=== PATIENT | male | born 1960 | race Caucasian/White ===

== ENCOUNTER 2018-07-15 11:49 | Emergency (ER) | payer SELFPAY ==
[~2018-07-15] VITALS: Ht 180.3 cm; Wt 120.5 kg
[~2018-07-15 11:49] MED LIST: BACTRIM DS1 TAB PO; CEPHALEXIN500 MG PO; FLEXERIL PO; LORTAB 1010 MG PO; MUPIROCIN2 % EX; SULFACET SOD10 % OS; ULTRAM50 M1 PO
[2018-07-15] MEDS ORDERED: MEDDOSEPAK PO (13:52)
[2018-07-15] MEDS ORDERED: FLEXERIL PO (13:52)
[2018-07-15] MEDS ORDERED: TORADOL PO (13:52)
[2018-07-15 14:00] VITALS: BP 131/82
== END 2018-07-15 14:00 | disposition home or self-care (01) | DRG 538 ==
LOC: ED 11:49
DX: S76.012A Strain of muscle, fascia and tendon of left hip, initial encounter (principal); X58.XXXA Exposure to other specified factors, initial encounter; F17.210 Nicotine dependence, cigarettes, uncomplicated

== ENCOUNTER 2021-12-07 11:39 | Observation (INO) | payer SELFPAY ==
[~2021-12-07] VITALS: Ht 180.3 cm; Wt 122.0 kg
[~2021-12-07 11:39] MED LIST changes: +MEDDOSEPAK PO; +TORADOL PO
--- NOTE | 2021-12-07 11:40 | NUR ---
TO ROOM VIA WHEELCHAIR
[2021-12-07] MEDS ORDERED: TYLENOL PM PO (12:08)
[2021-12-07 12:26] LABS: HEMOGLOBIN 18.1 g/dl (14.0-18.0); IMMATURE GRANULOCYTES 0.3 % (0.0-5.0); MEAN CORPUSCULAR HGB 33.5 pG CALC (26.0-32.0); MEAN CORPUSCULAR HGB CONC 32.8 g/dL CAL (32.0-36.0); NEUT# 4.84 thou/uL (1.82-7.42); RED BLOOD COUNT 5.41 mill/uL (4.70-6.10); RED CELL DISTRI WIDTH 12.2 % (11.5-15.5)
[2021-12-07 12:30] LABS: HEMATOCRIT 55.1 % (39.0-50.0); MEAN CELL VOLUME 101.8 fL CALC (80.0-100.0)
[2021-12-07 12:44] LABS: ALBUMIN 4.4 g/dL (3.2-5.0); ALKALINE PHOSPHATASE 56 u/l (38-126); BUN 17 mg/dL (8-23); BUN/CREATININE RATIO 16 (12-20 (CALC)); CHLORIDE 104 mmol/l (95-108); GFR > 60 ML/MIN (>=60 (CALC)); GFR FOR AFR.AMER. > 60 ML/MIN (>=60 (CALC)); SGOT/AST 22 u/l (19-48); SODIUM 137 mmol/l (137-146); TOTAL PROTEIN 7.4 g/dL (6.3-8.2)
[2021-12-07 12:48] LABS: ANION GAP 17 (6-22 (CALC)); BILIRUBIN, TOTAL 0.6 mg/dL (0.0-1.4); CARBON DIOXIDE 21 mmol/l (22-30); POTASSIUM 5.3 mmol/l (3.5-5.1)
--- NOTE | 2021-12-07 14:48 | NUR ---
MD AT BEDSIDE TO DISCUSS RESULTS AND POC
--- NOTE | 2021-12-07 15:30 | NUR ---
Elvira BARAHONA APRN AT BEDSIDE TO DISCUSS RESULTS AND POC
--- NOTE | 2021-12-07 16:17 | NUR ---
REPORT GIVEN TO VALERIY NEVILLE
--- NOTE | 2021-12-07 16:20 | NUR ---
TO MED SURG VIA WHEELCHAIR, TELE MONITOR IN PLACE
--- NOTE | 2021-12-07 16:20 | NUR ---
PATIENT RECEIVED FROM ED AT THIS TIME. PATIENT ALERT AND ORIENTED X 3 PATIENT STATES HAS SHOULDER PAIN AND IS A 3 ON THE PAIN SCALE AND 5MG OF FLEXIRIL PO GIVEN AT THIS TIME AND NICOTINE PATCH PLACED ON LEFT UPPER ARM. PATIENT PRESENTS WITH CLEAR LUNG PORTER AT THIS TIME. BOWEL SOUNDS PRESENT IN ALL FOUR QUADS AND PATIENT STATES THAT HIS LAST BM WAS THIS AM. NO EDEMA NOTED AND OR OPEN WOUNDS. ROOM ORIENTATION GONE OVER WITH PATIENT AT THIS TIME. PATIENT VERBALIZES UNDERSTANDING OF SIDERAIL POLICY AND ROOM ORIENTATION. TELE MONITOR ON PATIENT AT THIS TIME AND IS BEING MONITORED BY ED. IV #20 IN RAC AND IS SALINE LOCKED AND PATENT. SIDERAILS ARE UP CALL LIGHT IS WIHTIN REACH.
[2021-12-07 16:49] VITALS: BP 155/88
--- NOTE | 2021-12-07 20:00 | NUR ---
PATIENT RESTING IN BED WITH HOB ELEVATED. AWAKE ALERT AND ORIENTEDX3. 1800 TROP WAS NEG. TELE MONITOR IN PLACE WITH LAST READING SR-85 1ST DEGREE AVB. SALINE LOCK TO RAC INTACT AND HEALTHY WITH GOOD BLOOD RETURN. LUNGS ARE CLEAR. ABD IS SOFT WITH ACTIVE BS. LAST BM WAS YESTERDAY. DENIES ANY DIFFICULTY WITH URINATION. NO PERIPHERAL EDEMA NOTED WITH PALPABLE PULSES. SAFETY PRECAUTIONS REINFORCED. CALL LIGHT IN REACH. WILL CONT TO MONITOR.
[2021-12-07 20:30] VITALS: BP 142/83
--- NOTE | 2021-12-07 22:20 | NUR ---
PATIENT RESTING IN BED AT THIS TIME WATCHING TV. VOIDED 200CC OF CLEAR YELLOW URINE IN URINAL. TELE MONITOR IN PLACE. IV SITE TO RAC INTACT. MEDICATED FOR SLEEP WITH MELATONIN 3MG PO. CALL LIGHT IN REACH. WILL CONT TO MONITOR,
--- NOTE | 2021-12-07 23:54 | NUR ---
PATIENT RESTING IN BED. MN TROP HAS BEEN DRAWN. NO COMPLAINTS. CALL LIGHT IN REACH. WILL CONT TO MONITOR.
[2021-12-08] VITALS: BP 131/64
[2021-12-08 04:00] VITALS: BP 130/59
--- NOTE | 2021-12-08 04:00 | NUR ---
PATIENT RESTING IN BED-RESTLESS AT TIMES AND TELE OFF-REAPPLIED NEED. SALINE LOCK REMAINS IN PLACE. NO COMPLAINTS OF CHEST PAIN, PALPATATIONS OR SOB. CALL LIGHT IN REACH. WILL CONT TO MOITOR.
[2021-12-08 06:13] LABS: HEMATOCRIT 51.8 % (39.0-50.0); HEMOGLOBIN 16.8 g/dl (14.0-18.0); MEAN CELL VOLUME 101.8 fL CALC (80.0-100.0); MEAN CORPUSCULAR HGB CONC 32.4 g/dL CAL (32.0-36.0); RED BLOOD COUNT 5.09 mill/uL (4.70-6.10); RED CELL DISTRI WIDTH 12.2 % (11.5-15.5)
[2021-12-08 06:28] LABS: ANION GAP 12 (6-22 (CALC)); BUN 17 mg/dL (8-23); BUN/CREATININE RATIO 17 (12-20 (CALC)); CALCULATED LDLCHOLESTEROL 121 mg/dL (62-129 (CALC)); CHLORIDE 102 mmol/l (95-108); CHOLESTEROL HDL RATIO 8.2 (<4.4 (CALC)); GFR > 60 ML/MIN (>=60 (CALC)); GFR FOR AFR.AMER. > 60 ML/MIN (>=60 (CALC)); HDL CHOLESTEROL 26 mg/dL (>=40); MAGNESIUM 2.1 mg/dL (1.6-2.3); SODIUM 135 mmol/l (137-146); TOTAL CHOLESTEROL 217 mg/dl (0-199); TOTAL TRIGLYCERIDES 352 mg/dl (30-149); VLDL CHOLESTROL 70 mg/dl (4-45 (CALC))
[2021-12-08 06:34] LABS: CARBON DIOXIDE 26 mmol/l (22-30)
--- NOTE | 2021-12-08 08:00 | NUR ---
alert and orientedx3. respirations even and unlabored. bs active, no ble edemA NOTED, NO DIFFICULTY VOIDING. PIV WDL. PT DOES C/O FLANK PAIN THIS AM, NO CHEST PAIN. MEDICTAED PER DEC.
[2021-12-08] MEDS ORDERED: ASPIRIN 81 LOW81 MG PO (09:38)
[2021-12-08] MEDS ORDERED: FLEXERIL5 M1 PO (09:38)
[2021-12-08] MEDS ORDERED: MELATONIN3 M1 PO (10:39)
[2021-12-08 10:56] VITALS: BP 152/85
--- NOTE | 2021-12-08 13:11 | NUR ---
Discharge instructions given. Patient verbalizes understanding of same. Discharged in stable condition via AMBULATORY to Home with staff. All belongings sent with pt. IV 20 RAC SL REMOVED CATHETER FULLY INTACT. TELE MONITOR REMOVED. PT LEFT AMBUOLATORY PER REQUEST, ACCOMPANIED BY JAMIN GA
== END 2021-12-08 13:12 | disposition home or self-care (01) | DRG 313 ==
LOC: ED 11:39 → ED-I 14:22 → ED 15:01 → MS2 15:02
PROVIDERS: Family Medicine; Nurse Practitioner; ADMIT Hospitalist; ATTEND Hospitalist
DX: R07.9 Chest pain, unspecified (principal); E87.5 Hyperkalemia; E66.9 Obesity, unspecified; F17.210 Nicotine dependence, cigarettes, uncomplicated; Z68.37 Body mass index [BMI] 37.0-37.9, adult; Z82.49 Family history of ischemic heart disease and other diseases of the circulatory system; Z83.6 Family history of other diseases of the respiratory system; Z20.822 Contact with and (suspected) exposure to COVID-19
CPT/HCPCS: G0378; J1650; Q9967

== ENCOUNTER 2023-05-02 10:07 | Observation (INO) | payer SELFPAY ==
[2023-05-02] VITALS (16 sets, daily range): BP systolic 148–176; BP diastolic 78–140
[~2023-05-02] VITALS: Ht 180.3 cm; Wt 136.4 kg
[~2023-05-02 10:07] MED LIST changes: +ASPIRIN 81 LOW81 MG PO; +FLEXERIL5 M1 PO; +MELATONIN3 M1 PO; +TYLENOL PM PO
--- NOTE | 2023-05-02 10:12 | NUR ---
PATIENT TO ROOM 14 VIA WHEELCHAIR
[2023-05-02 11:03] LABS: BASO% 0.3 % (0-3); HEMATOCRIT 49.3 % (39.0-50.0); IMMATURE GRANULOCYTES 0.4 % (0.0-5.0); LYMPH% 24.5 % (15-41); MEAN CORPUSCULAR HGB 31.8 pG CALC (26.0-32.0); MEAN CORPUSCULAR HGB CONC 32.5 g/dL CAL (32.0-36.0); MONO% 7.1 % (2-13); NEUT# 4.75 thou/uL (1.82-7.42); NEUT% 67.7 % (42-76); RED BLOOD COUNT 5.03 mill/uL (4.70-6.10); RED CELL DISTRI WIDTH 12.5 % (11.5-15.5)
--- NOTE | 2023-05-02 11:16 | NUR ---
PT IS SITTING UP IN BED, NAD.
[2023-05-02 11:23] LABS: ALBUMIN 3.7 g/dL (3.2-5.0); ALKALINE PHOSPHATASE 49 u/l (38-126); ANION GAP 9 (6-22 (CALC)); BILIRUBIN, TOTAL 0.4 mg/dL (0.2-1.3); BUN 15 mg/dL (8-23); BUN/CREATININE RATIO 17 (12-20 (CALC)); CARBON DIOXIDE 25 mmol/l (22-30); CHLORIDE 108 mmol/l (95-108); CREATININE 0.9 mg/dL (0.7-1.3); GFR FOR AFR.AMER. > 60 ML/MIN (>=60 (CALC)); GFR OTHER RACES > 60 ML/MIN (>=60 (CALC)); POTASSIUM 4.6 mmol/l (3.5-5.1); SGOT/AST 22 u/l (19-48); SODIUM 137 mmol/l (137-146); TOTAL PROTEIN 6.5 g/dL (6.3-8.2)
--- NOTE | 2023-05-02 12:09 | NUR ---
PT HAS AMBULATED BACK TO BED, PT HAS C/O PAIN TO LEGS.
--- NOTE | 2023-05-02 13:00 | NUR ---
PT STATES PAIN IS DOWN TO 4.
--- NOTE | 2023-05-02 14:13 | NUR ---
pt has been provided lunch
--- NOTE | 2023-05-02 15:36 | NUR ---
REPORT RECIVED FROM HEATING MECHANIC
--- NOTE | 2023-05-02 15:43 | NUR ---
PT ARRIVED VIA WC WITH OCCUPATIONAL SAFETY AND HEALTH MANAGER. ORIENATED PT TO ROOM AND CALL [facility]. ADMISSION ASESSMENT ALLOWED. TELE MONITOR IN PLACE, CONTINOUS MONITORING PER ED. TELE #15. DISCUSSED CURRENT PLAN OF CARE. FALL/SAFTEY PRECAUITON IN PLACE. CALL LIGHT WITHIN REACH.
--- NOTE | 2023-05-02 18:56 | NUR ---
REPORT RECEIVED FROM Jennifer GA RN
--- NOTE | 2023-05-02 18:58 | NUR ---
REPORT RECEIVED FROM Jennifer ENG RN
[2023-05-03] VITALS (8 sets, daily range): BP systolic 119–168; BP diastolic 69–92
--- NOTE | 2023-05-03 | NUR ---
PATIENT RESTING, NO APPARENT DISTRESS NOTED. RESPIRATIONS EVEN AND UNLABORED, RISE AND FALL OF CHEST NOTED. CALL LIGHT AND BEDSIDE TABLE WITHIN REACH.
--- NOTE | 2023-05-03 04:00 | NUR ---
PATIENT RESTING, NO APPARENT DISTRESS NOTED. RESPIRATIONS EVEN AND UNLABORED, RISE AND FALL OF CHEST NOTED. CALL LIGHT AND BEDSIDE TABLE WITHIN REACH.
[2023-05-03 05:16] LABS: ALBUMIN 3.6 g/dL (3.2-5.0); ALKALINE PHOSPHATASE 61 u/l (38-126); ANION GAP 10 (6-22 (CALC)); BILIRUBIN, TOTAL 0.3 mg/dL (0.2-1.3); BUN 16 mg/dL (8-23); BUN/CREATININE RATIO 15 (12-20 (CALC)); CARBON DIOXIDE 25 mmol/l (22-30); CHLORIDE 104 mmol/l (95-108); GFR FOR AFR.AMER. > 60 ML/MIN (>=60 (CALC)); GFR OTHER RACES > 60 ML/MIN (>=60 (CALC)); POTASSIUM 3.9 mmol/l (3.5-5.1); SGOT/AST 23 u/l (19-48); SODIUM 135 mmol/l (137-146); TOTAL PROTEIN 6.3 g/dL (6.3-8.2)
[2023-05-03 05:20] LABS: HEMATOCRIT 50.4 % (39.0-50.0); HEMOGLOBIN 16.5 g/dl (14.0-18.0); MEAN CELL VOLUME 97.5 fL CALC (80.0-100.0); MEAN CORPUSCULAR HGB 31.9 pG CALC (26.0-32.0); MEAN CORPUSCULAR HGB CONC 32.7 g/dL CAL (32.0-36.0); RED BLOOD COUNT 5.17 mill/uL (4.70-6.10); RED CELL DISTRI WIDTH 12.6 % (11.5-15.5)
[2023-05-03 05:36] LABS: CHOLESTEROL HDL RATIO 7.1 (<4.4 (CALC)); MAGNESIUM 1.9 mg/dL (1.6-2.3)
--- NOTE | 2023-05-03 07:00 | NUR ---
RECEIVE REPORT FROM LAURA NEVILLE.
--- NOTE | 2023-05-03 08:00 | NUR ---
Alert and oriented patient x3. He does not report pain or discomfort at the time of this note. TV monitor on. patient is educated and oriented about medications and nursing plan for all. pt refer understand. safety and fall precautions in place. call light within reach.
--- NOTE | 2023-05-03 12:28 | NUR ---
PATIENT RESTING IN BED, NO APPARENT DISTRESS NOTED. RESPIRATIONS EVEN AND UNLABORED, RISE AND FALL OF CHEST NOTED. CALL LIGHT AND BEDSIDE TABLE WITHIN REACH.
--- NOTE | 2023-05-03 16:00 | NUR ---
PT RESTING DENIES ADDITIONAL NEEDS AT THE TIME VERIFIED TO CHANGE NICOTINE PATCH SCHEDULED PT AGREED.
--- NOTE | 2023-05-03 18:47 | NUR ---
REPORT RECEIVED FROM Jeninfer JOYA LPN.
[2023-05-04] VITALS (9 sets, daily range): BP systolic 133–147; BP diastolic 72–83
--- NOTE | 2023-05-04 | NUR ---
PATIENT RESTING IN BED, NO APPARENT DISTRESS NOTED. RESPIRATIONS EVEN AND UNLABORED. RISE AND FALL OF CHEST NOTED. CALL LIGHT AND BEDSIDE TABLE WITHIN REACH.
--- NOTE | 2023-05-04 03:58 | NUR ---
PATIENT WAS WEIGHED ON STANDING SCALE AT THIS TIME.
[2023-05-04 05:55] LABS: HEMATOCRIT 49.6 % (39.0-50.0); HEMOGLOBIN 16.3 g/dl (14.0-18.0); MEAN CELL VOLUME 97.6 fL CALC (80.0-100.0); MEAN CORPUSCULAR HGB 32.1 pG CALC (26.0-32.0); MEAN CORPUSCULAR HGB CONC 32.9 g/dL CAL (32.0-36.0); RED BLOOD COUNT 5.08 mill/uL (4.70-6.10); RED CELL DISTRI WIDTH 12.3 % (11.5-15.5)
[2023-05-04 06:21] LABS: ALBUMIN 3.8 g/dL (3.2-5.0); ALKALINE PHOSPHATASE 52 u/l (38-126); ANION GAP 9 (6-22 (CALC)); BUN 17 mg/dL (8-23); BUN/CREATININE RATIO 17 (12-20 (CALC)); CARBON DIOXIDE 28 mmol/l (22-30); CHLORIDE 102 mmol/l (95-108); GFR FOR AFR.AMER. > 60 ML/MIN (>=60 (CALC)); GFR OTHER RACES > 60 ML/MIN (>=60 (CALC)); MAGNESIUM 2.1 mg/dL (1.6-2.3); POTASSIUM 4.1 mmol/l (3.5-5.1); SGOT/AST 24 u/l (19-48); SODIUM 135 mmol/l (137-146); TOTAL PROTEIN 6.6 g/dL (6.3-8.2)
[2023-05-04 06:34] LABS: BILIRUBIN, TOTAL 0.7 mg/dL (0.2-1.3)
--- NOTE | 2023-05-04 07:45 | NUR ---
PERFROMED BEDSIDE REPORT WITH NIGHTSHIFT NURSE. PT NOTED SITTING UP IN CHAIR, RM AIR, A/OX3, EATING BREAKFAST AT THIS TIME. PT DENIES ANY PAIN. DOES COMPLAIN OF FEELING A SPLINTER IN LEFT FOOT. DID INSPECT AREA AND NOTED SMALL DARK SPOT. NO SPLINTER NOTED. EDUCATED PT ON PLAN OF CARE AND MED SCHEDULE. CALL LIGHT WITHIN REACH AND SAFETY PRECAUTIONS IN PLACE.
--- NOTE | 2023-05-04 11:30 | NUR ---
PT IS SITTING UP ON SIDE OF BED EATING LUNCH AT THIS TIME. PT DID COMPLAIN OF PAIN, FOLLOWED UP WITH PAIN MEDICATION PER EMAR. NO S/S OF DISTRESS. CALL LIGHT WITHIN REACH AND SAFETY PRECAUTIONS IN PLACE.
--- NOTE | 2023-05-04 17:31 | NUR ---
APPLIED NEW NICOTINE PATCH AND APPLIED NEW ONE. PT IS CURRENTLY LAYING SEMI FOWELRS IN BED. NO S/S OF DISTRESS. DENIES ANY PAIN AT THIS TIME. CALL LIGHT WITHIN REACH AND SAFETY PRECAUTIONS IN PLACE.
--- NOTE | 2023-05-04 20:00 | NUR ---
RECEIVED REPORT FROM NURSE ERICH WEISS ALERT ORINETED, AMBULATORY, PATIENT IV G 20 ON LAC PATENT AND FLUSHES WELL, HOOKED ON TELEMTRY, LUNG SOUNDS DIMINISHED, ACTIVE BOWLE SOUNDS LBM 05/04, NOT IN DISTRESS, CALL LIGHT IN REACH.
--- NOTE | 2023-05-04 22:30 | NUR ---
[facility] ID SWAB RESULT NEGATIVE PATYIENT ON STANDARD PRECAUTION.
--- NOTE | 2023-05-04 23:48 | NUR ---
PATIENT ONGOINF V VIBRAMYCIN, PATIENT NOT IN DISTRESS, BREATHING EVEN UNLABORED CALL LIGHT IN REACH.
--- NOTE | 2023-05-05 03:40 | NUR ---
PATIENT RESTING IN BED NOT IN DISTRESS, BREATHING UNLABORED, CALL LIGHT IN REACH.
[2023-05-05 04:21] VITALS: BP 129/81
--- NOTE | 2023-05-05 05:05 | NUR ---
PATIENT C/O INDIGESTION AND GERD, V/S OBTAINED AND TROPONIN X 1 ORDERED.
[2023-05-05 06:10] LABS: ANION GAP 15 (6-22 (CALC)); BUN 22 mg/dL (8-23); BUN/CREATININE RATIO 24 (12-20 (CALC)); CARBON DIOXIDE 23 mmol/l (22-30); CHLORIDE 102 mmol/l (95-108); CREATININE 0.9 mg/dL (0.7-1.3); GFR FOR AFR.AMER. > 60 ML/MIN (>=60 (CALC)); GFR OTHER RACES > 60 ML/MIN (>=60 (CALC)); MAGNESIUM 2.2 mg/dL (1.6-2.3); POTASSIUM 4.7 mmol/l (3.5-5.1); SODIUM 135 mmol/l (137-146)
[2023-05-05 06:40] VITALS: BP 144/60
--- NOTE | 2023-05-05 07:00 | NUR ---
RECEIVED BEDSIDE REPORT FROM JAMIN SERVIN. PT RESTING IN BED WITH EYES CLOSED. ALL SAFETY MEASURES IN PLACE. VSS. NO NEEDS AT THIS TIME.
[2023-05-05] MEDS ORDERED: ADLT ASA LOW81 MG PO (10:29)
[2023-05-05] MEDS ORDERED: LOPRESSOR25 MG PO (10:29)
[2023-05-05] MEDS ORDERED: LASIX 20 MG TAB20 MG PO (10:30)
[2023-05-05] MEDS ORDERED: ATORVASTATIN CA20 MG PO (10:30)
[2023-05-05] MEDS ORDERED: MEDDOSEPAK PO (10:30)
[2023-05-05] MEDS ORDERED: LISINOPRIL10 MG PO (10:30)
[2023-05-05] MEDS ORDERED: ZITHROMAX250 MG PO (10:31)
[2023-05-05 10:50] VITALS: BP 119/83
== END 2023-05-05 12:12 | disposition home or self-care (01) | DRG 291 ==
LOC: ED 10:07 → MS2 13:49
PROVIDERS: Family Medicine; ADMIT Internal Medicine; ATTEND Internal Medicine
DX: I11.0 Hypertensive heart disease with heart failure (principal); I50.41 Acute combined systolic (congestive) and diastolic (congestive) heart failure; J44.1 Chronic obstructive pulmonary disease with (acute) exacerbation; E66.01 Morbid (severe) obesity due to excess calories; F17.210 Nicotine dependence, cigarettes, uncomplicated; M79.605 Pain in left leg; M79.604 Pain in right leg; Z20.822 Contact with and (suspected) exposure to COVID-19
CPT/HCPCS: G0378; J1650

== ENCOUNTER 2023-05-07 14:06 | Observation (INO) | payer SELFPAY ==
[2023-05-07] VITALS (39 sets, daily range): BP systolic 89–152; BP diastolic 49–91
[~2023-05-07] VITALS: Ht 180.3 cm; Wt 136.8 kg
[~2023-05-07 14:06] MED LIST changes: +ADLT ASA LOW81 MG PO; +ATORVASTATIN CA20 MG PO; +LASIX 20 MG TAB20 MG PO; +LISINOPRIL10 MG PO; +LOPRESSOR25 MG PO; +ZITHROMAX250 MG PO
[2023-05-07 14:51] LABS: BASO% 0.1 % (0-3); HEMATOCRIT 50.3 % (39.0-50.0); HEMOGLOBIN 16.5 g/dl (14.0-18.0); IMMATURE GRANULOCYTES 0.4 % (0.0-5.0); LYMPH% 15.8 % (15-41); MEAN CELL VOLUME 98.6 fL CALC (80.0-100.0); MEAN CORPUSCULAR HGB 32.4 pG CALC (26.0-32.0); MEAN CORPUSCULAR HGB CONC 32.8 g/dL CAL (32.0-36.0); MONO% 5.1 % (2-13); NEUT# 10.81 thou/uL (1.82-7.42); NEUT% 78.6 % (42-76); RED BLOOD COUNT 5.1 mill/uL (4.70-6.10); RED CELL DISTRI WIDTH 12.7 % (11.5-15.5)
[2023-05-07 15:00] LABS: ALBUMIN 3.9 g/dL (3.2-5.0); ALKALINE PHOSPHATASE 61 u/l (38-126); ANION GAP 13 (6-22 (CALC)); BILIRUBIN, TOTAL 0.5 mg/dL (0.2-1.3); BUN 32 mg/dL (8-23); BUN/CREATININE RATIO 27 (12-20 (CALC)); CARBON DIOXIDE 21 mmol/l (22-30); CHLORIDE 112 mmol/l (95-108); CREATININE 1.2 mg/dL (0.7-1.3); GFR FOR AFR.AMER. > 60 ML/MIN (>=60 (CALC)); GFR OTHER RACES > 60 ML/MIN (>=60 (CALC)); LIPASE 50 u/l (23-300); POTASSIUM 4.5 mmol/l (3.5-5.1); SGOT/AST 24 u/l (19-48); SODIUM 141 mmol/l (137-146); TOTAL PROTEIN 6.7 g/dL (6.3-8.2)
[2023-05-08 03:32] VITALS: BP 141/73
[2023-05-08 04:43] VITALS: BP 141/73
[2023-05-08 07:10] VITALS: BP 146/70
[2023-05-08 11:15] VITALS: BP 142/80
== END 2023-05-08 13:32 | disposition home or self-care (01) | DRG 313 ==
LOC: ED 14:06 → ED-I 17:17 → ED 17:48 → MS2 17:49
PROVIDERS: Nurse Practitioner; ADMIT Internal Medicine; ATTEND Internal Medicine
DX: R07.9 Chest pain, unspecified (principal); J44.9 Chronic obstructive pulmonary disease, unspecified; F17.200 Nicotine dependence, unspecified, uncomplicated
CPT/HCPCS: G0378

== ENCOUNTER 2024-04-06 11:39 | Emergency (ER) | payer MEDICARE ==
[~2024-04-06] VITALS: Ht 180.3 cm; Wt 136.0 kg
[~2024-04-06 11:39] MED LIST changes: +GABAPENTIN100 MG PO
[2024-04-06 11:53] VITALS: BP 158/87
[2024-04-06 12:01] VITALS: BP 124/71
[2024-04-06 12:10] LABS: BASO% 0.3 % (0-3); EOS% 0.1 % (0-8); IMMATURE GRANULOCYTES 0.1 % (0.0-5.0); LYMPH% 21.2 % (15-41); MEAN CELL VOLUME 98.9 fL CALC (80.0-100.0); MEAN CORPUSCULAR HGB 32.5 pG CALC (26.0-32.0); MEAN CORPUSCULAR HGB CONC 32.8 g/dL CAL (32.0-36.0); MONO% 6.3 % (2-13); NEUT# 5.56 thou/uL (1.82-7.42); RED BLOOD COUNT 4.65 mill/uL (4.70-6.10); RED CELL DISTRI WIDTH 12.2 % (11.5-15.5)
[2024-04-06 12:16] VITALS: BP 146/86
[2024-04-06 12:21] LABS: HEMOGLOBIN 15.1 g/dl (14.0-18.0)
[2024-04-06 12:31] VITALS: BP 150/77
[2024-04-06 12:37] LABS: ALBUMIN 3.8 g/dL (3.2-5.0); BILIRUBIN, TOTAL 0.5 mg/dL (0.2-1.3); CREATININE 0.8 mg/dL (0.7-1.3); POTASSIUM 4.3 mmol/l (3.5-5.1); TOTAL PROTEIN 6.6 g/dL (6.3-8.2)
[2024-04-06 12:56] VITALS: BP 150/77
== END 2024-04-06 12:59 | disposition home or self-care (01) ==
LOC: ED 11:39
PROVIDERS: Family Medicine
DX: L76.32 Postprocedural hematoma of skin and subcutaneous tissue following other procedure (principal); I25.10 Atherosclerotic heart disease of native coronary artery without angina pectoris; J44.9 Chronic obstructive pulmonary disease, unspecified; I11.0 Hypertensive heart disease with heart failure; I50.9 Heart failure, unspecified; F17.200 Nicotine dependence, unspecified, uncomplicated; Y84.0 Cardiac catheterization as the cause of abnormal reaction of the patient, or of later complication, without mention of misadventure at the time of the procedure